=== PATIENT | female | born 1955 | race Caucasian/White ===

== ENCOUNTER 2024-12-07 09:31 | Outpatient (CLI) | payer MEDICARE, BC, SELFPAY ==
--- NOTE | 2024-12-07 09:15 | CRLHL7_ITS ---
For Patients: As a result of the Century Cures Act, medical imaging exams and procedure reports are released immediately into your electronic medical record. You may view this report before your referring provider. If you have questions, please contact your health care provider. Indication: Localized swelling, lump, left prox anterior thigh Technique: Ultrasound of the proximal left thigh in an area of painful concern. Sonographic toure-scale images were obtained with spectral and color Doppler waveform and spectral waveform analysis of the soft tissues in an area of palpable concern. Comparison: None available. Findings: There is demonstration of a large multilocular hematoma corresponding to the area of palpable concern measuring up to 4.3 x 2.6 x 3.4 centimeters. Impression: Demonstration of a multiloculated hematoma within the subcutaneous fat of the proximal thigh corresponding to the area of palpable concern measuring 4.3 centimeters in greatest dimension. Dictated by Donte Klein MD @ 12/07/2024 10:36:08 AM (Electronically Signed)
== END 2024-12-07 09:32 | disposition home or self-care (01) ==
LOC: US 09:31
PROVIDERS: Visit Provider Physician Assistant
DX: R22.42 Localized swelling, mass and lump, left lower limb (principal); S70.12XA Contusion of left thigh, initial encounter
CPT/HCPCS: 76882